=== PATIENT | female | born 2000 | race Caucasian/White ===

== ENCOUNTER 2024-08-25 15:23 | Emergency (ER) | payer BC, SELFPAY ==
[2024-08-25 15:27] VITALS: BP 116/79
[2024-08-25 16:25] LABS: HCG, Urine Qualitative Screen Negative
[2024-08-25 16:26] LABS: Urine Albumin 1+ (Neg - Trace); Urine Bilirubin Negative (Negative); Urine Character Clear (Clear); Urine Color Yellow; Urine Glucose Negative (Negative); Urine Ketone Negative (Negative); Urine Leukocyte 1+ (Negative); Urine Nitrite Negative (Negative); Urine Occult Blood Negative (Negative); Urine Urobilinogen Negative (Neg - 1+)
--- NOTE | 2024-08-25 16:35 | ED.GENMED ---
History of Present Illness
General
Chief Complaint: Back Pain
Source: patient
Exam Limitations: none
Time Seen by Provider: 08/25/24 16:28
History of Present Illness
History of Present Illness:
24-year-old female complaining of right sided back pain. Had UTI symptoms last week self treated with azole. Denies fever chills nausea or vomiting..
Past History
Past History
ED Past Surgical History: Orthopedic and Other ([place] teeth)
Review of Systems
Review of Systems
All Other Systems: Not applicable
Constitutional: Denies fever or chills
Phy Exam
Physical Exam
Physical Exam:
GENERAL: Alert and oriented in no apparent distress
EYE: Orbits normal.
NECK: Supple
CARDIAC: Regular rate and rhythm without any obvious murmurs.
LUNGS: Clear breath sounds,normal
ABDOMEN: Soft, without focal tenderness or distention. Mild right CVA tenderness
NEUROLOGICAL: Alert and oriented , grossly non-focal
SKIN: Warm and dry
PSYCH: Normal and appropriate interaction.
Course
Orders/Labs/Results
Orders:
Orders
08/25/24 15:30
Test Result ONCE
08/25/24 15:34
HCG, Urine Qualitative Screen Urgent
Date Specimen was Collected: 08/25/24
Time Specimen was Collected: 15:30
Urinalysis Reflex To Culture Urgent
Date Specimen was Collected: 08/25/24
Time Specimen was Collected: 15:30
Urine Microscopic Reflex Cult Urgent
Urine Culture Urgent
IRLANDA Source: U
Specimen Description:
Date Specimen was Collected: 08/25/24
Time Specimen was Collected: 15:30
08/25/24 16:35
US Renal With Bladder Urgent
Comment: bladder not full ok, looking at ureteral jets
Reason For Exam: Right back pain/UTI symptoms
08/25/24 19:11
Cefdinir [Omnicef] 300 mg PO NOW STA
Abnormal Lab Results
08/25/24
15:34
Leukocyte Esterase Rfl 1+ A
(Negative)
Urine WBC (Reflex) 11-15 A /HPF
(0-5)
Urine Bacteria (Reflex) Few A
(Negative)
Urine Albumin (Reflex) 1+ A
(Neg - Trace)
Vital Signs
Initial and Last Documented VS:
Initial Vital Signs
Temp Pulse Resp BP Pulse Ox
98.2 F 76 17 116/79 99
08/25/24 15:27 08/25/24 15:27 08/25/24 15:27 08/25/24 15:27 08/25/24 15:27
Last Documented Vital Signs
Temp Pulse Resp BP Pulse Ox
98.2 F 76 17 116/79 99
08/25/24 15:27 08/25/24 15:27 08/25/24 15:27 08/25/24 15:27 08/25/24 15:27
MDM/Problems Addressed
Differential Diagnosis Includes:
Recent UTI symptoms. Self treated with azole. No antibiotic treatment. Right back pain. Differential would include pyelonephritis, kidney stone, kidney stone plus pyelonephritis musculoskeletal. Workup in progress
*Radiology
Radiology exam reviewed: radiology read reviewed (Negative ultrasound)
*Pulse Oximetry
Patient hypoxic: no (99%)
*Critical Care Note
Total Time (30-74mins, 75-104mins- exclusive of procedures): Not Applicable
Update Note
Update Note:
Patient nontoxic in no distress. Urine is mildly positive. Possible UTI or very minimal early pyelonephritis. Possibly musculoskeletal back pain. Will cover with antibiotics pending culture.
ED Attending Note
-
Portions of this chart may have been created with voice recognition software.� Occasional wrong word or��sound alike� substitutions may have occurred due to the inherent limitations of voice recognition software.
Discharge Plan
Departure
Patient Disposition: Home (Routine Discharge)
Date of Disposition: 08/25/24
Time of Disposition: 19:13
Patient with high blood pressure during this ER visit?: No
Discharge Problem:
Right back pain, Possible UTI
Instructions: Urinary tract infections in adults, Low Back Pain (DC)
Prescriptions:
New
cefdinir 300 mg capsule
300 mg PO BID 5 Days Qty: 10 0RF
Referrals:
Weston Spicer MD [Family Provider, Family Practice]
Activity Restrictions/Additional Instructions:
The prescriptions were sent to your pharmacy Advil or Motrin for pain. You can also take Tylenol
Interventions
Interventions:
*Risk Screen - Suicide Last Done: 08/25/24 15:29
*General Assessment Last Done: 08/25/24 15:29
*Neglect/Abuse Screening Last Done: 08/25/24 15:29
*ED COVID-19 Vaccine History Last Done: 08/25/24 15:29
ED-Musculoskeletal Assessment Last Done: 08/25/24 17:01
Discharge Date and Time
Print Language: HEBREW
[2024-08-25 17:45] LABS: Urine Bacteria Few (Negative); Urine Red Blood Cell 0-2 /HPF (0-2)
[2024-08-25 19:14] VITALS: BP 106/67
[2024-08-25] MEDS: MOTRIN 600 MG PO (19:24)
[2024-08-25] MEDS: OMNICEF 300 MG PO (19:24)
== END 2024-08-25 19:28 | disposition home or self-care (01) ==
LOC: EMR 15:23
PROVIDERS: EMERGENCY PHYSICIAN Emergency Medicine; FAMILY PHYSICIAN Family Medicine
DX: M54.9 Dorsalgia, unspecified (principal)
CPT/HCPCS: 99285; 76770; 81003; 81015; 81025; 87086